=== PATIENT | female | born 1965 ===

== ENCOUNTER 2017-01-26 06:35 | Day surgery (SDC) | payer MEDICARE, MEDICAID ==
[2017-01-22 12:16] VITALS: BMI 47.8
[2017-01-26 07:39] LABS: BASO # 0.02 K/mm3 (0.0-2.0); BASO % 0.3 % (0.0-3.0); EOS # 0.3 (0.0-0.7); EOS % 3.7 % (1.5-5.0); GRAN # 3.84 (1.4-6.5); GRAN % 56.9 % (50.0-68.0); HEMOGLOBIN 11.9 gm/dL (12.0-16.0); LYMPH # 2.3 (1.2-3.4); LYMPH % 33.6 % (22.0-35.0); MEAN CELL VOLUME 81.4 fL (80.0-105.0); MEAN CORPUSCULAR HEMOGLOBIN 27.4 pg (25.0-35.0); MEAN CORPUSCULAR HGB CONC 33.6 g/dl (31.0-37.0); MEAN PLATELET VOLUME 10.3 fl (7.0-11.0); MONO # 0.4 (0.1-0.6); MONO % 5.5 % (1.0-6.0); PLATELET COUNT 202 10^3/uL (120.0-450.0); RBC 4.35 10^6/uL (3.5-6.1); RED CELL DISTRIBUTION WIDTH 14.1 % (11.5-14.5); WHITE BLOOD COUNT 6.8 10^3/ul (4.5-11.0)
[2017-01-26 07:48] LABS: INR 0.99 (0.93-1.08); PARTIAL THROMBOPLASTIN TIME 28.7 Seconds (23.7-30.8); PROTHROMBIN TIME 10.7 Seconds (9.9-11.8)
[2017-01-26 07:50] LABS: BLOOD UREA NITROGEN 9 mg/dL (7-21); CALCIUM 8.8 mg/dL (8.4-10.5); GFR AFRICAN-AMERICAN > 60; GFR NON-AFRICAN AMERICAN > 60; HDL CHOLESTEROL 36 mg/dL (29-60)
[2017-01-26 08:00] LABS: LDL CHOLESTEROL 81 mg/dL (0-129)
[2017-01-26] MEDS ORDERED: Lidocaine 2% Inj (20ml) ONE (08:26)
[2017-01-26] MEDS ORDERED: Nitroglycerin 50mg in D5W 50 MG/250 ML BOTTLE IV ONE (08:27)
[2017-01-26] MEDS ORDERED: Midazolam 2 MG/2 ML VIAL ONE (09:08)
[2017-01-26 09:48] VITALS: RESP 18
[2017-01-26] MEDS ORDERED: Bacitracin 500 Units/gm Oint Foilpak UD TOP ONE (09:56)
[2017-01-26] MEDS ORDERED: Sodium Chloride 0.9% 1,000 ML IV SCH (10:00)
[2017-01-26 10:33] VITALS: TEMP 98.1
[2017-01-26] MEDS ORDERED: Bacitracin 500 Units/gm Oint Foilpak UD ONE (12:30)
[2017-01-26 12:52] VITALS: O2SAT 99
[2017-01-26 14:51] VITALS: BP 141/85; PULSE 80
--- NOTE | 2017-01-26 18:14 | CARD ---
APPROVED REPORT Procedure(s) performed: Left Heart Catheterization HISTORY The patient is a 51 year-old female with a history of : hypertension , dyslipidemia , Pre-op for knee surgery had an abnormal stress test. INDICATION The indication(s) include : positive stress test. CASE TECHNIQUE The patient was brought electively to the Cardiac Catheterization Laboratory in a fasting state and was prepped and draped in a sterile manner. The left wrist was infiltrated with 2% Lidocaine subcutaneous anesthesia. A sheath was inserted into the left radial artery without difficulty. Coronary angiography was performed using coronary diagnostic catheters. The left coronary system was accessed and visualized with a Diagnostic ,Jl 3.5 5Fr catheter. The right coronary system was accessed and visualized with a Diagnostic , JR 3.5 5Fr catheter. The left ventricle was accessed and visualized with a pigtali catheter. Left ventricular/Aortic Valve gradient assessed on pullback. Left ventriculogram was performed in [place] projection. The patient tolerated the procedure well and there were no complications associated with the procedure. Vessel Analysis The patient's coronary anatomy is co-dominant. The left main coronary artery is a large size vessel without significant stenosis. The left main bifurcates to the left anterior descending and circumflex. The left anterior descending artery is a medium size vessel with diffuse calcification noted throughout this vessel and without significant stenosis. There is a 60% stenosis in the mid segment. The first diagonal branch is a medium size vessel with diffuse calcification noted throughout this vessel and with significant stenosis. There is a 70% stenosis in the ostial segment. The circumflex artery is a large size vessel with diffuse calcification noted throughout this vessel and without significant stenosis. The first obtuse marginal branch is a small size vessel with intimal irregularities and without significant stenosis. The second obtuse marginal branch is a large size vessel with diffuse calcification noted throughout this vessel and without significant stenosis. The right coronary artery is a large size vessel with diffuse calcification noted throughout this vessel and without significant stenosis. The right posterior descending artery is a medium size vessel with intimal irregularities and without significant stenosis. Left Ventricle The left ventricle is normal in size with normal contractility. There was no cardiomyopathy. The left ventricular ejection fraction is estimated to be 65%. The left ventricular end diastolic pressure is 35 mmHg. There was no gradient across the aortic valve upon pullback. Conclusion Non Obstructive CAD limited to Mid LAD 60% in worst view and Ostial D1 70% preserved Lv Fxz; Ef-65%, EDp-35 mm of Hg with respiratory variation Recommendations Aggressive Medical TherapyCardiac Risk Reduction Program Weight Loss Reduction Program Add diuretics in current regimen Pt is cleared from cardiology point of view to go for Knee surgery . Cc; drs. Vila / Elida.
--- NOTE | 2017-01-26 23:23 | CARD ---
APPROVED REPORT EKG Measurement Heart [id number] <Conclusion> Normal sinus rhythm Normal ECG
== END 2017-01-26 14:30 | disposition home or self-care (01) ==
LOC: CATH 06:35
PROVIDERS: ATTEND Internal Medicine Cardiovascular Disease
DX: I25.119 Atherosclerotic heart disease of native coronary artery with unspecified angina pectoris (principal); I10 Essential (primary) hypertension; E78.5 Hyperlipidemia, unspecified; R94.39 Abnormal result of other cardiovascular function study; Z01.810 Encounter for preprocedural cardiovascular examination; J45.909 Unspecified asthma, uncomplicated; R06.00 Dyspnea, unspecified; E11.9 Type 2 diabetes mellitus without complications; E66.9 Obesity, unspecified
CPT/HCPCS: 36415; 80048; 80061; 84703; 85025; 85610; 85730; 86850; 86900; 93005; 93458; 99152; C1769; C1887; J1644 ×2; J1940; J2250; J3010; J7030; J7040 ×2; Q9967

== ENCOUNTER 2018-03-08 16:25 | Inpatient (IN) | payer MEDICARE, MEDICAID ==
--- NOTE | 2018-03-08 16:50 | ED PDOC ---
Arrival/HPI - General Historian: Patient - History of Present Illness Time/Duration: > week Symptom Onset: Gradual Symptom Course: Worsening Quality: Aching Severity Level: 9 <Ever Staton - Last Filed: 03/08/18 19:01> <Del Hall - Last Filed: 03/08/18 19:14> - General Time Seen by Provider: 03/08/18 16:47 - History of Present Illness Narrative History of Present Illness (Text): 03/08/18 17:34 Patient is a 52 year old female with past medical history of asthma, neuropathy , hypertension, and hyperlipidemia presenting to the ED with left ankle swelling. Patient states that the swelling started 2 weeks ago and has been worsening. She states that she went to see her PMD last week for the same complaint and her PMD adjusted her home medications. However, the ankle swelling is not getting better. She describes the pain as achy, 9/10, and non- radiating. Tylenol helps with the pain and walking makes the pain worse. Patient had bilateral knee replacement surgery in November 2017. She also admits to feeling short of breath at night when she is lying down in bed. Patient denies fevers, headaches, chest pain, abdominal pain, N/V/D, or urinary symptoms. 03/08/18 18:48 (Ever Staton) Past Medical History - Infectious Disease Hx of Infectious Diseases: None - Tetanus Immunization Tetanus Immunization: Unknown - Cardiac Hx Pacemaker: No - Pulmonary Hx Asthma: Yes - Neurological Hx Paralysis: No - HEENT Hx HEENT Disorder: Yes Other/Comment: WEARS RX GLASSES - Renal Hx Renal Disorder: Yes Other/Comment: RIGHT PARTIAL NEPHRECTOMY - Endocrine/Metabolic Hx Endocrine Disorders: No - Hematological/Oncological Hx Blood Transfusions: No - Integumentary Hx Dermatological Disorder: No - Musculoskeletal/Rheumatological Hx Musculoskeletal Disorders: Yes - Gastrointestinal Hx Gastrointestinal Disorders: Yes Hx Gastroesophageal Reflux: Yes - Genitourinary/Gynecological Hx Genitourinary Disorders: No - Psychiatric Hx Emotional Abuse: No Hx Physical Abuse: No Hx Substance Use: No - Past Surgical History Past Surgical History: Non-Contributing - Surgical History Other/Comment: Kidney Surgery "a long time ago" - Anesthesia Hx Anesthesia Reactions: No Hx Malignant Hyperthermia: No - Suicidal Assessment Feels Threatened In Home Enviroment: No <Ever Staton - Last Filed: 03/08/18 19:01> Family/Social History Family/Social History: Hypertension Smoking Status: Never Smoked Hx Alcohol Use: No Hx Substance Use: No Hx Substance Use Treatment: No <Ever Staton - Last Filed: 03/08/18 19:01> Allergies/Home Meds <Ever Staton - Last Filed: 03/08/18 19:01> <Del Hall - Last Filed: 03/08/18 19:14> Allergies/Adverse Reactions: Allergies No Known Allergies Allergy (Verified 03/08/18 16:32) Home Medications: Home Meds Medication Instructions Recorded Confirmed Tiotropium [Spiriva] 18 mcg IH BID 12/15/12 03/08/18 Fluticasone Nasal [Flonase] 2 spr NS DAILY 11/08/15 03/08/18 Gabapentin [Neurontin] 300 mg PO HS 11/08/15 03/08/18 Hydrochlorothiazide 12.5 mg PO DAILY 11/08/15 03/08/18 Montelukast [Singulair] 10 mg PO BID 11/08/15 03/08/18 Simvastatin 40 mg PO DAILY 11/08/15 03/08/18 Albuterol HFA [Ventolin HFA 90 2 puff IH BID 01/22/17 03/08/18 mcg/actuation (8 g)] Albuterol/Ipratropium [Duoneb 3 3 ml NEB TID 01/22/17 03/08/18 mg/0.5 mg (3 ml) UD] Benzonatate 100 mg PO QPM 01/22/17 03/08/18 Gemfibrozil 600 mg PO BID 01/22/17 03/08/18 Metoprolol Tartrate [Lopressor] 25 mg PO DAILY 01/22/17 03/08/18 Mycophenolate [Cellcept Cap] 500 mg PO BID 01/22/17 03/08/18 Sucralfate [Carafate Tab] 1 gm PO BID 01/22/17 03/08/18 Tramadol HCl/Acetaminophen 1 tab PO BID PRN 01/22/17 03/08/18 [Tramadol-Acetaminophn 37.5-325] Enalapril Maleate [Vasotec] 20 mg PO DAILY 03/08/18 03/08/18 Esomeprazole Magnesium [Nexium] 40 mg PO DAILY 03/08/18 03/08/18 Esomeprazole Magnesium [Nexium] 40 mg pe PO DAILY 03/08/18 03/08/18 Lactulose [Constulose] 10 gra PO DAILY 03/08/18 03/08/18 Omeprazole [Omeprazole] 20 mg PO BID 03/08/18 03/08/18 Review of Systems - Review of Systems Constitutional: Normal. absent: Fevers, Night Sweats Eyes: Normal ENT: Normal Respiratory: SOB. absent: Wheezing Cardiovascular: Normal. absent: Chest Pain, Palpitations Gastrointestinal: Normal. absent: Abdominal Pain, Stool Changes, Constipation, Diarrhea Genitourinary Female: Normal Musculoskeletal: Joint Swelling Skin: Normal. absent: Rash, Pruritis, Laceration Neurological: Other (Complains of nerve pain) Psychiatric: Normal <Ever Staton - Last Filed: 03/08/18 19:01> - Physician Review All systems were reviewed & negative as marked: Yes <Del Hall - Last Filed: 03/08/18 19:14> Physical Exam Vital Signs Reviewed: Yes Temperature: Afebrile Blood Pressure: Normal Pulse: Tachycardic Respiratory Rate: Normal Appearance: Positive for: Well-Appearing Pain Distress: Moderate Mental Status: Positive for: Alert and Oriented X 3 - Systems Exam Head: Present: Atraumatic, Normocephalic Pupils: Present: PERRL Extroacular Muscles: Present: EOMI Conjunctiva: Present: Normal Mouth: Present: Moist Mucous Membranes Respiratory/Chest: Present: Clear to Auscultation. No: Respiratory Distress, Accessory Muscle Use, Wheezes, Rales, Rhonchi Cardiovascular: Present: Normal S1, S2, Tachycardic. No: Murmurs, Rub, Gallop Abdomen: Present: Normal Bowel Sounds. No: Tenderness, Distention Upper Extremity: Present: Normal Inspection. No: Cyanosis, Edema Lower Extremity: Present: Edema, Tenderness, Other (Left ankle more edematous and warm compared to the right ankle, +1 edema on left ankle and left leg, left ankle tender to palpation) Neurological: Present: GCS=15, CN II-XII Intact Skin: Present: Warm, Dry, Rashes, Normal Color Psychiatric: Present: Alert, Oriented x 3, Normal Insight, Normal Concentration <Ever Staton - Last Filed: 03/08/18 19:01> Vital Signs Reviewed: Yes <LucindamorenaDel - Last Filed: 03/08/18 19:14> Vital Signs Temp Pulse Resp BP Pulse Ox 03/08/18 16:45 98.0 F 100 H 20 139/83 96 03/08/18 16:43 98.0 F 100 H 20 139/83 96 Medical Decision Making <Homa Statoni - Last Filed: 03/08/18 19:01> <Del Hall - Last Filed: 03/08/18 19:14> ED Course and Treatment: 03/08/18 17:45 Impression: Patient is a 52 year old with past medical history of asthma, neuropathy, hypertension, and hyperlipidemia presenting to the ED with left ankle swelling. Differential Diagnoses Include But is Not Limited To: - DVT - Cellulitis - CHF exacerbation Plan: - BNP - D-dimer - Troponin - CBC, CMP - LE Venous doppler - Chest Xray - EKG - Toradol Progress note: 03/08/18 18:55 - Chest Xray showed no acute disease - LE venous doppler, EKG, BNP, D-dimer, CBC, CMP, troponin results still pending 03/08/18 18:58 - Dr. Pelaez will continue patient care for patient (Ever Staton) 03/08/18 19:11 Cindy Shepard is a 52 year old female who presents to the emergency department with a complaint of left ankle swelling. In agreement with resident note, which includes further HPI details. Patient was seen and evaluated with resident, came up with plan and treatment together. 03/08/18 19:13: Case endorsed to Dr. Pelaez. (Del Hall) - Lab Interpretations Lab Results: 03/08/18 18:29 03/08/18 18:29 Lab Results 03/08/18 18:29: Sodium 144, Potassium 4.1, Chloride 104, Carbon Dioxide 28, Anion Gap 17, BUN 10, Creatinine 0.6 L, Est GFR ( Amer) > 60, Est GFR ( Non-Af Amer) > 60, Random Glucose 96, Calcium 9.4, Total Bilirubin 0.4, AST 23, ALT 16, Alkaline Phosphatase 100, Troponin I < 0.01, NT-Pro-B Natriuret Pep 71.4 , Total Protein 8.3, Albumin 4.5, Globulin 3.8, Albumin/Globulin Ratio 1.2 03/08/18 18:29: WBC 7.5, RBC 5.10, Hgb 12.2, Hct 38.3, MCV 75.1 L, MCH 23.9 L, MCHC 31.9, RDW 15.6 H, Plt Count 215, MPV 10.5, Gran % 65.1, Lymph % (Auto) 28.1 , [place] % (Auto) 4.5, Eos % (Auto) 2.0, Baso % (Auto) 0.3, Gran # 4.88, Lymph # ( Auto) 2.1, [place] # (Auto) 0.3, Eos # (Auto) 0.2, Baso # (Auto) 0.02 - RAD Interpretation Radiology Orders: 03/08/18 17:18 CXR [CHEST PORTABLE] [RAD] Stat 03/08/18 17:19 DUPLEX LOWER EXTRM VEIN BILAT [US] Stat - Medication Orders Current Medication Orders: Discontinued Medications Ketorolac Tromethamine (Toradol) 30 mg IVP STAT STA Stop: 03/08/18 17:59 Disposition/Present on Arrival - Present on Arrival Any Indicators Present on Arrival: No History of DVT/PE: No History of Uncontrolled Diabetes: No Urinary Catheter: No History of Decub. Ulcer: No History Surgical Site Infection Following: None - Disposition Have Diagnosis and Disposition been Completed?: No Disposition Time: 18:57 (Dr. Pelaez will continue care of patient) <Ever Staton - Last Filed: 03/08/18 19:01> <Del Hall - Last Filed: 03/08/18 19:14> - Disposition Diagnosis: Left ankle swelling Patient Problems: Current Active Problems Problem Status Onset Left ankle swelling Acute Condition: FAIR Referrals: Rosalina Vila MD [Primary Care Provider] - Follow up with primary
--- NOTE | 2018-03-08 18:26 | RAD ---
Date of service: 03/08/2018 HISTORY: SOB COMPARISON: Chest radiograph dated 12/30/2016. FINDINGS: LUNGS: No active pulmonary disease. PLEURA: No significant pleural effusion identified, no pneumothorax apparent. CARDIOVASCULAR: Cardiomediastinal silhouette at the upper limits of normal in size. OSSEOUS STRUCTURES: Unchanged. VISUALIZED UPPER ABDOMEN: Normal. OTHER FINDINGS: None. IMPRESSION: No active disease.
[2018-03-08 18:47] LABS: ALB/GLOB RATIO 1.2 (1.1-1.8); ALBUMIN 4.5 g/dL (3.0-4.8); ALT/SGPT 16 U/L (7-56); AST/SGOT 23 U/L (14-36); BLOOD UREA NITROGEN 10 mg/dL (7-21); CALCIUM 9.4 mg/dL (8.4-10.5); GFR NON-AFRICAN AMERICAN > 60
[2018-03-08 18:56] LABS: TROPONIN I < 0.01 ng/mL
[2018-03-08 18:57] LABS: B-TYPE NATRIURETIC PEPTIDE 71.4 pg/mL (0-450)
[2018-03-08 19:00] LABS: BASO # 0.02 K/mm3 (0.0-2.0); BASO % 0.3 % (0.0-3.0); EOS # 0.2 (0.0-0.7); GRAN # 4.88 (1.4-6.5); GRAN % 65.1 % (50.0-68.0); HEMOGLOBIN 12.2 g/dL (12.0-16.0); LYMPH # 2.1 (1.2-3.4); LYMPH % 28.1 % (22.0-35.0); MEAN CELL VOLUME 75.1 fl (80.0-105.0); MEAN CORPUSCULAR HEMOGLOBIN 23.9 pg (25.0-35.0); MEAN CORPUSCULAR HGB CONC 31.9 g/dl (31.0-37.0); MEAN PLATELET VOLUME 10.5 fl (7.0-11.0); MONO # 0.3 (0.1-0.6); MONO % 4.5 % (1.0-6.0); RBC 5.1 10^6/uL (3.5-6.1); RED CELL DISTRIBUTION WIDTH 15.6 % (11.5-14.5); WHITE BLOOD COUNT 7.5 10^3/ul (4.5-11.0)
--- NOTE | 2018-03-08 20:09 | ED PDOC ---
Physical Exam Vital Signs Reviewed: Yes Vital Signs Temp Pulse Resp BP Pulse Ox 03/08/18 16:45 98.0 F 100 H 20 139/83 96 03/08/18 16:43 98.0 F 100 H 20 139/83 96 Temperature: Afebrile Blood Pressure: Normal Pulse: Tachycardic Respiratory Rate: Normal Appearance: Positive for: Well-Appearing, Non-Toxic, Comfortable Pain Distress: None Mental Status: Positive for: Alert and Oriented X 3 Medical Decision Making ED Course and Treatment: 03/08/18 19:13: Case endorsed to me by Dr. Hall.Patient presented to the emergency department today with complaint of swelling lower legs. Pending LE venous doppler, EKG, BNP, D-dimer, CBC, CMP, troponin results still pending. 03/08/18 20:46: Case discussed in detail with Dr. Vila who requests patient be put on her service for further management. - Lab Interpretations Lab Results: 03/08/18 18:29 03/08/18 18:29 Lab Results 03/08/18 18:29: Sodium 144, Potassium 4.1, Chloride 104, Carbon Dioxide 28, Anion Gap 17, BUN 10, Creatinine 0.6 L, Est GFR ( Amer) > 60, Est GFR ( Non-Af Amer) > 60, Random Glucose 96, Calcium 9.4, Total Bilirubin 0.4, AST 23, ALT 16, Alkaline Phosphatase 100, Troponin I < 0.01, NT-Pro-B Natriuret Pep 71.4 , Total Protein 8.3, Albumin 4.5, Globulin 3.8, Albumin/Globulin Ratio 1.2 03/08/18 18:29: WBC 7.5, RBC 5.10, Hgb 12.2, Hct 38.3, MCV 75.1 L, MCH 23.9 L, MCHC 31.9, RDW 15.6 H, Plt Count 215, MPV 10.5, Gran % 65.1, Lymph % (Auto) 28.1 , [place] % (Auto) 4.5, Eos % (Auto) 2.0, Baso % (Auto) 0.3, Gran # 4.88, Lymph # ( Auto) 2.1, [place] # (Auto) 0.3, Eos # (Auto) 0.2, Baso # (Auto) 0.02 - RAD Interpretation Radiology Orders: 03/08/18 17:18 CXR [CHEST PORTABLE] [RAD] Stat 03/08/18 17:19 DUPLEX LOWER EXTRM VEIN BILAT [US] Stat - Medication Orders Current Medication Orders: Discontinued Medications Ketorolac Tromethamine (Toradol) 30 mg IVP STAT STA Stop: 03/08/18 17:59 - Scribe Statement The provider has reviewed the documentation as recorded by the Scribe Regina Soriano Provider Scribe Attestation: All medical record entries made by the Scribe were at my direction and personally dictated by me. I have reviewed the chart and agree that the record accurately reflects my personal performance of the history, physical exam, medical decision making, and the department course for this patient. I have also personally directed, reviewed, and agree with the discharge instructions and disposition. Disposition/Present on Arrival - Present on Arrival Any Indicators Present on Arrival: No History of DVT/PE: No History of Uncontrolled Diabetes: No Urinary Catheter: No History of Decub. Ulcer: No History Surgical Site Infection Following: None - Disposition Have Diagnosis and Disposition been Completed?: Yes Diagnosis: Bilateral leg edema Disposition: HOSPITALIZED Disposition Time: 20:49 Patient Plan: Observation Patient Problems: Current Active Problems Problem Status Onset Bilateral leg edema Acute Condition: FAIR
[2018-03-08 22:11] LABS: PARTIAL THROMBOPLASTIN TIME 30.1 Seconds (25.1-36.5); PROTHROMBIN TIME 11.4 SECONDS (9.4-12.5)
[2018-03-09 02:44] VITALS: BMI 41.5
[2018-03-09] MEDS ORDERED: Pneumococcal 23-Valent Vaccine IM ONE (02:44)
[2018-03-09] MEDS: Albuterol-Ipratrop 3 mg / 0.5 (3 ml) UD INH SCH ×3 (08:15→20:19)
--- NOTE | 2018-03-09 08:25 | CT ---
Date of service: 03/09/2018 PROCEDURE: CT Chest with contrast (Pulmonary Angiogram) HISTORY: elevated d-dimer COMPARISON: None available. TECHNIQUE: Axial computed tomography images were obtained of the chest in the pulmonary arterial phase of enhancement. Coronal and sagittal reformatted images were created and reviewed. Intravenous contrast dose: 100 cc of Visipaque Radiation dose: Total exam DLP = 527 mGy-cm. This CT exam was performed using one or more of the following dose reduction techniques: Automated exposure control, adjustment of the mA and/or kV according to patient size, and/or use of iterative reconstruction technique. FINDINGS: PULMONARY ARTERIES: There is suboptimal opacification of the pulmonary arteries. There are no large emboli seen in the proximal arteries AORTA: No acute findings. No thoracic aortic aneurysm. LUNGS: Unremarkable. No nodule, mass or pulmonary consolidation. PLEURAL SPACES: Unremarkable. No effusion or pneumothorax. HEART: Unremarkable. No cardiomegaly. No significant pericardial effusion. LYMPH NODES: No lymphadenopathy. BONES, CHEST WALL: Unremarkable. No fracture or destructive lesion OTHER FINDINGS: The report concurs with the preliminary [facility] report IMPRESSION: There is suboptimal opacification of the pulmonary arteries. There are no large emboli seen in the proximal arteries
--- NOTE | 2018-03-09 09:15 | CARD ---
APPROVED REPORT Date of service: 03/08/2018 EKG Measurement Heart [id number] <Conclusion> Normal sinus rhythm Normal ECG No change
[2018-03-09] MEDS: Tiotropium 18 mcg Cap For Inhalation IH SCH (09:28)
[2018-03-09] MEDS: Fluticasone Nasal 50 mcg/Spray NS SCH (09:29)
--- NOTE | 2018-03-09 12:35 | RAD ---
Date of service: 03/09/2018 PROCEDURE: Left Ankle Radiographs. HISTORY: pain COMPARISON: None FINDINGS: BONES: Normal. No fracture. JOINTS: Normal. No osteoarthritis. Ankle mortise maintained. Talar dome intact SOFT TISSUES: Normal. OTHER FINDINGS: None. IMPRESSION: Normal left ankle radiographs.
--- NOTE | 2018-03-09 12:36 | RAD ---
Date of service: 03/09/2018 PROCEDURE: Left Foot Radiographs. HISTORY: pain COMPARISON: None. FINDINGS: BONES: Normal. No fracture. JOINTS: Normal. SOFT TISSUES: Normal. OTHER FINDINGS: None. IMPRESSION: Normal left foot radiographs.
--- NOTE | 2018-03-09 17:33 | US ---
HISTORY: Leg pain and swelling. Evaluate for DVT PHYSICIAN(S): Devendra Causey MD. TECHNIQUE: Duplex sonography and color-flow Doppler with graded compression were used to evaluate the deep venous systems of both lower extremities. The exam is limited by body habitus and edema. FINDINGS: The visualized deep venous systems of both lower extremities are sonographically normal and compressible. Normal wave forms and augmentation are seen. There is no sonographic evidence for deep venous thrombosis in the visualized segments of both lower extremities. IMPRESSION: No sonographic evidence for deep venous thrombosis in the visualized segments of both lower extremities. Very limited study.
--- NOTE | 2018-03-10 00:02 | CON ---
Copied To: Johanna Whitman MD Attending MD: Johanna Whitman MD DATE: 03/09/2018 REASON FOR CONSULTATION: Cardiac evaluation, admitted with complaints of lower leg swelling, some shortness of breath, also history of cardiac catheterization and nonischemic coronary artery disease, history of bilateral knee replacement. BRIEF CLINICAL HISTORY: This is a 52-year-old obese female with past medical history of hypertension, history of arthritis, history of morbid obesity, history of cardiac catheterization, admitted yesterday with complaining of lower extremity edema and shortness of breath. Denies any chest pain or palpitation. PAST MEDICAL HISTORY: Significant for history of hypertension, hyperlipidemia, obesity, COPD, history of obstructive sleep apnea. SOCIAL HISTORY: Denies smoking. Denies any history of alcohol abuse. CURRENT MEDICATIONS: The patient is taking tramadol one tablet daily, Spiriva, sucralfate, omeprazole, metoprolol, lactulose, gemfibrozil, enalapril, albuterol. PREVIOUS CARDIAC WORKUP: As follows, the patient had a cardiac catheterization done on 01/26/2017 that revealed nonobstructive coronary artery disease, limited only to mid LAD 60% in the worse view, ostial diagonal 1 70% stenosis, preserved LV function, ejection fraction 65%, EDP was in the range of 35 with respiratory variation. Recommendation: Aggressive medical treatment, cardiac risk factor reduction program, weight loss reduction program, add diuretics at this time, and the patient was cleared for surgery for right knee that was on . The patient has recently done with left knee joint, also replacement. The patient had a stress test done prior to that cardiac catheterization that revealed abnormal, so the patient underwent cardiac catheterization coronary artery disease. PAST SURGICAL HISTORY: Significant for right knee replacement in 02/2017 and in 11/2017 the patient had left knee joint replacement. REVIEW OF SYSTEMS: As per HPI. PHYSICAL EXAMINATION: VITAL SIGNS: As follows: Height of the patient is 5 feet 9 inches, weight of the patient 281 pounds, body mass index 42 kg/sq m. Rest of the examination as follows, temperature afebrile, heart rate 94, blood pressure 134/69. HEENT: PERRLA. Extraocular muscles intact. NECK: Supple. No carotid bruits or thyromegaly. CHEST: Clear to auscultation. HEART: S1 and S2 regular. ABDOMEN: Soft. EXTREMITIES: Clubbing and cyanosis negative. LABORATORY DATA: Blood workup as follows: WBC 7.5, hemoglobin 12.2, hematocrit 38.3, and platelet count 215. Chemistry shows , chloride 104, carbon dioxide is 28, anion gap of 17, BUN 10, creatinine 0.7. Troponin 0.01, negative. IMPRESSION: Bilateral lower extremity swelling, hypertension, hyperlipidemia, chronic obstructive pulmonary disease, morbid obesity, status post cardiac catheterization on 01/26/2017, nonischemic coronary artery disease, limited only worse view 60% left anterior descending artery, diagonal 1 ostial 70%, preserved left ventricular function ejection fraction 65%, elevated EDP, status post bilateral knee replacement in 02/2017 right and status post left knee in 11/2017. RECOMMENDATIONS: We will get lipid profile, TSH, hemoglobin A1c. We will get echo to assess LV function and tricuspid regurgitation. We will put diuretics. We will follow with you. Continue deep venous thrombosis prophylaxis. The patient also has history of obstructive sleep apnea, we will get echo to assess, rule out any pulmonary hypertension. Thank you, Dr. Vila for providing us the opportunity in taking care of the patient Cindy Shepard. Johanna Whitman MD
[2018-03-10 06:53] LABS: BASO # 0.01 K/mm3 (0.0-2.0); BASO % 0.1 % (0.0-3.0); EOS # 0.2 (0.0-0.7); EOS % 2.4 % (1.5-5.0); GRAN # 4.68 (1.4-6.5); GRAN % 64.9 % (50.0-68.0); HEMOGLOBIN 12.3 g/dL (12.0-16.0); LYMPH # 1.9 (1.2-3.4); LYMPH % 26.3 % (22.0-35.0); MEAN CELL VOLUME 74.9 fl (80.0-105.0); MEAN CORPUSCULAR HEMOGLOBIN 24.4 pg (25.0-35.0); MEAN CORPUSCULAR HGB CONC 32.5 g/dl (31.0-37.0); MEAN PLATELET VOLUME 10.2 fl (7.0-11.0); MONO # 0.5 (0.1-0.6); MONO % 6.3 % (1.0-6.0); RBC 5.05 10^6/uL (3.5-6.1); RED CELL DISTRIBUTION WIDTH 16.2 % (11.5-14.5); WHITE BLOOD COUNT 7.2 10^3/ul (4.5-11.0)
[2018-03-10 06:59] LABS: IRON 66 ug/dL (45-180)
[2018-03-10 07:09] LABS: % IRON SATURATION 19 % (20-55); TOTAL IRON BINDING CAPACITY 358 ug/dL (265-497)
[2018-03-10 07:17] LABS: ALB/GLOB RATIO 1.1 (1.1-1.8); ALBUMIN 4.2 g/dL (3.0-4.8); ALT/SGPT 21 U/L (7-56); AST/SGOT 20 U/L (14-36); BLOOD UREA NITROGEN 12 mg/dL (7-21); CALCIUM 8.8 mg/dL (8.4-10.5); GFR NON-AFRICAN AMERICAN > 60; HDL CHOLESTEROL 38 mg/dL (29-60)
[2018-03-10 07:23] LABS: LDL CHOLESTEROL 102 mg/dL (0-129)
[2018-03-10] MEDS: Albuterol-Ipratrop 3 mg / 0.5 (3 ml) UD INH SCH ×4 (07:35→20:10)
--- NOTE | 2018-03-10 07:43 | CP.PCM.PN ---
Subjective - Date & Time of Evaluation Date of Evaluation: 03/10/18 Time of Evaluation: 06:35 - Subjective Subjective: Awake, denies shortness of breath, no distress Reason for consultation and follow up:Cardiac evaluation of shortness of breath , history of asthma,COPD, Obstructive sleep apnea, GERD, presented to ER for ankle swelling Seen and examined by me and Dr. Whitman Objective - Vital Signs/Intake and Output Vital Signs (last 24 hours): Temp Pulse Resp BP Pulse Ox 98 F 83 20 123/73 100 03/09/18 21:00 03/09/18 21:00 03/09/18 21:00 03/09/18 21:14 03/09/18 21:00 Intake and Output: 03/10/18 03/10/18 06:59 18:59 Intake Total 720 Output Total 1300 Balance -580 - Medications Medications: Current Medications Acetaminophen (Tylenol 325mg Tab) 650 mg PO Q4H PRN PRN Reason: Pain, moderate (4-7) Albuterol/Ipratropium (Duoneb 3 Mg/0.5 Mg (3 Ml) Ud) 3 ml INH TID [facility] Last Admin: 03/10/18 07:35 Dose: 3 ml Atorvastatin Calcium (Lipitor) 20 mg PO DIN [facility] Last Admin: 03/09/18 17:37 Dose: 20 mg Benzonatate (Tessalon Perles) 100 mg PO QPM [facility] Last Admin: 03/09/18 17:37 Dose: 100 mg Enoxaparin Sodium (Lovenox) 40 mg SC DAILY [facility] PRN Reason: Protocol Fluticasone Propionate (Flonase) 2 actuation NS DAILY [facility] Last Admin: 03/09/18 09:29 Dose: Not Given Furosemide (Lasix) 40 mg IVP Q12 [facility] Last Admin: 03/09/18 21:14 Dose: 40 mg Gabapentin (Neurontin) 300 mg PO HS [facility] PRN Reason: Protocol Last Admin: 03/09/18 21:16 Dose: 300 mg Gemfibrozil (Lopid) 600 mg PO BID [facility] Last Admin: 03/09/18 17:37 Dose: 600 mg Lactulose (Enulose) 10 gm PO DAILY [facility] Last Admin: 03/09/18 09:27 Dose: 10 gm Lisinopril (Zestril) 20 mg PO DAILY [facility] Last Admin: 03/09/18 09:28 Dose: 20 mg Metoprolol Tartrate (Lopressor) 25 mg PO DAILY [facility] Last Admin: 03/09/18 09:28 Dose: 25 mg Montelukast Sodium (Singulair) 10 mg PO DAILY [facility] Last Admin: 03/09/18 09:28 Dose: 10 mg Mycophenolate Mofetil (Cellcept Cap) 500 mg PO BID [facility] Last Admin: 03/09/18 17:37 Dose: 500 mg Sucralfate (Carafate Tab) 1 gm PO BID [facility] Last Admin: 03/09/18 17:35 Dose: 1 gm Tiotropium [place] (Spiriva) 18 mcg IH DAILY [facility] Last Admin: 03/09/18 09:28 Dose: 18 mcg - Labs Labs: 03/10/18 06:00 03/10/18 06:00 PT 11.4 SECONDS (9.4-12.5) 03/08/18 21:58 INR 1.00 03/08/18 21:58 APTT 30.1 Seconds (25.1-36.5) 03/08/18 21:58 - Constitutional Appears: No Acute Distress - Eye Exam Eye Exam: Normal appearance - ENT Exam ENT Exam: Mucous Membranes Moist - Respiratory Exam Respiratory Exam: Decreased Breath Sounds, NORMAL BREATHING PATTERN - Cardiovascular Exam Cardiovascular Exam: +S1, +S2 - GI/Abdominal Exam GI & Abdominal Exam: Soft, Normal Bowel Sounds - Extremities Exam Additional comments: 2+ pedal edema - Neurological Exam Neurological Exam: Alert, Awake, Oriented x3 - Psychiatric Exam Psychiatric exam: Normal Affect - Skin Skin Exam: Dry, Warm Assessment and Plan - Assessment and Plan (Free Text) Assessment: A 52 year old female who came in to the ER due to lower leg swelling and shortness of breath at night,history of hypertension,GERD, arthritis, COPD, sleep apnea,rheumatoid arthritis,right partial nephrectomy, hyperlipidemia,non obstructive coronary artery disease. pst bilateral knee replacement. Plan: ECHO done yesterday-awaiting final result Foot and ankle X ray- normal negative for fracture US of lower extremities negative for DVT CT of chest negative for emboli Continue Lasix to diurese Heart rate and blood pressure controlled Cardiac status stable Continue current treatment Continue current medications Will follow up Plan and treatment discussed with Dr. Whitman
--- NOTE | 2018-03-10 09:17 | CON ---
Copied To: Johanna Beltrán MD Attending MD: Johanna Beltrán MD DATE: 03/09/2018 PULMONARY CONSULTATION REFERRING PHYSICIAN: Rosalina Vila MD REASON FOR CONSULTATION: Chronic obstructive lung disease, sleep apnea syndrome, history of PE and DVT. 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 No fever. No chills. No nausea. PAST MEDICAL HISTORY: As per history of present illness, has a history of right partial nephrectomy, history of gastroesophageal reflux disease. FAMILY HISTORY: Positive for hypertension. SOCIAL HISTORY: Nonsmoker, nondrinker. ALLERGIES: NO KNOWN ALLERGIES. MEDICATIONS: She is on Carafate 1 g twice a day, CellCept 500 mg twice a day, DuoNeb every 8 hours, lactulose 10 mg daily, Flonase one ____ spray to each nostril daily, Lasix 40 mg twice a day, Lipitor 20 mg daily, Gemfibrozil 600 mg twice a day, metoprolol tartrate 25 mg daily, gabapentin 300 mg at bedtime, Singulair 10 mg daily, Spiriva 1 capsule inhaled daily, Tessalon Perles 100 mg four times a day, Tylenol p.r.n. basis, Zestril 20 mg daily. REVIEW OF SYSTEMS: No headache. Not much rhinitis. Short of breath exertion. No chest pain. No abdominal pain. No dysuria. Has a recurrent leg swelling. PHYSICAL EXAMINATION: GENERAL: No acute distress. VITAL SIGNS: Temperature is 98, heart rate 76, respiratory rate is 20, blood pressure 118/80, pulse of 98% room air. HEENT: Moist mucous membrane. Crowded airway. NECK: Supple. No JVD. LUNGS: Have a prolonged expiratory phase with wheezing. HEART: S1 and S2. ABDOMEN: Soft, nontender, no organomegaly. EXTREMITIES: Left knee incision site looks okay, left more edema than the right. NEUROLOGIC: Awake, alert and follows simple commands. LABORATORY DATA: Shows hemoglobin 12.2, hematocrit 38.3, WBC 7.5, platelet count is 215. INR 1.0. PTT 31, D-dimer is 757. Sodium 144, potassium 4.1, chloride 104, bicarbonate 28, BUN is 10, creatinine 0.6, glucose 96, calcium 9.4, total bili 0.4, AST 23, ALT 16, alk phos is 100. Albumin is 4.5. Has a chest x-ray done on admission, shows no active disease. Has a venous Doppler done on admission, shows no sonographic evidence of DVT and thrombosis in the visualized segment of the both lower extremities though it is a limited study. Had a CT of the chest done in the ER, shows suboptimal opacification of the pulmonary artery. There are no large emboli seen in the proximal arteries. Echocardiogram is being done. IMPRESSION AND PLAN: Chronic obstructive lung disease, history of deep vein thrombosis and pulmonary embolism in the remote past, hypertension, obesity, sleep apnea syndrome, status post left knee replacement, has edema of the both lower extremity. D-dimers are positive. Both venous Doppler and CTA is suboptimal study as she has a D-dimer, positive stone, history of thromboembolic disease in the past on anticoagulation. We will suggest getting VQ scan of the chest to assure there is no pulmonary embolism. Keep her head at [address] her on CPAP 6 cm 30% oxygen while sleeping. Gastric and deep vein thrombosis prophylaxis. Thank you and we will follow. Johanna Beltrán MD
--- NOTE | 2018-03-10 09:33 | HP ---
03/09/18 Copied To: Rosalina Vila MD Attending MD: Rosalina Vila MD The patient is a 52-year-old female. CHIEF COMPLAINT: Swelling of the leg. HISTORY OF PRESENT ILLNESS: Ms. Cindy Shepard is a 52-year-old female, my private patient, with history of asthma, COPD, neuropathy, hypertension, obesity, hypercholesterolemia, knee surgery. Cleaning my office with swelling of the legs. I prescribed her Lasix, then she called back, still swelling, then I added Aldactone, now she was taking Lasix 40 and Aldactone 25. Still called my office that still she has swelling of the leg, then I sent her to the [facility] and her swelling is like for 2 weeks and worsening instead of getting better. She described the pain as 8 to 9/10, non-radiating. Tylenol helps with pain and walking makes the pain worse. The patient had bilateral knee replacement. Surgery was done in 11/2017, by Dr. Aguilera. She also admits to feeling short of breath at night when she is lying down in the bed. The patient denies fevers, headache, chest pain, or abdominal pain. No nausea, vomiting, or diarrhea. No urinary symptoms. I admitted the patient. Discussion done with Dr. Beltrán. Cardiology consult called. PAST MEDICAL HISTORY: As above. Asthma, right partial nephrectomy, GERD, dyspepsia, COPD. FAMILY HISTORY: Father and mother, noncontributory. HABITS: Never smoked. No drugs. No ethanol. ALLERGIES: THE PATIENT IS NOT ALLERGIC WITH ANY MEDICATIONS. HOME MEDICATIONS: Spiriva, Flonase, Neurontin, Lasix, Aldactone, Singulair, simvastatin, Ventolin, gemfibrozil, Lopressor, CellCept, Carafate, Nexium, lactulose. REVIEW OF SYSTEMS: The patient was seen and examined at the bedside. Sister and other family members are sitting on the bedside also, still having swelling of the legs. No fever. No chills. Getting shortness of breath. No headache. No dizziness. No hematuria or hematochezia. PHYSICAL EXAMINATION: VITAL SIGNS: Temperature 98, heart rate 100, respiratory rate 20, blood pressure 139/83, pulse oximetry 96. HEENT: Head is normocephalic and atraumatic. Eyes; PERRLA. Extraocular muscles are intact. Conjunctivae are clear. Nose is patent. Mucous membranes are moist. NECK: Supple. No carotid bruit, JVD, or thyromegaly. CHEST: Bilaterally symmetrical. HEART: S1 and S2 positive. LUNGS: Clear to auscultation. ABDOMEN: Soft. Bowel sounds present. No organomegaly. EXTREMITIES: Positive edema. No cyanosis. NEUROLOGICAL: Oriented x3. Follow simple orders. LABORATORY DATA: White blood cells 7.5, hemoglobin 12.2, hematocrit 38.3,and platelet 215. Sodium 144, potassium 4.1, BUN 10, creatinine 0.6, glucose 96. ASSESSMENT AND PLAN: Ms. Cindy Shepard is a 52-year-old lady came with swelling of the legs, especially left ankle, failure outpatient treatment. The patient is on p.o. Lasix and Aldactone, not helping. The patient has history of asthma, chronic obstructive pulmonary disease, neuropathy, hypertension, hypercholesterolemia, history of partial nephrectomy, gastroesophageal reflux disease, dyspepsia, knee replacement. Did x-ray of the foot and ankle, reviewed by me. Normal left foot radiograph. Normal left ankle radiograph. CAT scan of the chest done, there is suboptimal opacification of the left arteries. There are no large emboli seen in the proximal arteries. Doppler of the leg was done, reviewed by me. Admitted as outpatient. Seen by Dr. Whitman, mems engineer and Dr. Beltrán, plant sciences professor. Restarted home medications. Lasix given IV twice a day. Gastrointestinal and deep vein thrombosis prophylaxis. Repeat labs. WIN stockings. We will follow up. Rosalina Vila MD LILA
[2018-03-10] MEDS ORDERED: Enoxaparin 40 mg Syringe SC SCH (10:00)
[2018-03-10] MEDS ORDERED: Magnesium Sulfate 1 gm in D5W 1 GM/100 ML BAG IVPB ONE (10:05)
--- NOTE | 2018-03-10 10:09 | CP.PCM.PN ---
Subjective - Date & Time of Evaluation Date of Evaluation: 03/10/18 Time of Evaluation: 09:45 - Subjective Subjective: Royce Ortiz- Internal Medicine Resident House Doctor Note Subjective: CC: Gait Instability/head trauma HPI: Paged by RN for evaluation of patient s/p trauma to head. Patient seen and examined at bedside. Patient states she was attempting to stand from toilet when became dizzy and leaned into the wall for support. During the initial impact patient states she hit her head. Admits to baseline gait dysfunction. Admits to dizziness. Denies loss of consciousness and trauma to other regions of the body. Further denies fever, chills, chest palpitations, chest pain, shortness of breath, abdominal pain, nausea, vomiting, and pain. Physical Examination: Head: Normocephalic, Tender to palpation in left temporal region Eyes: EOMI, Perrla, Nonicteric, red conjunctiva Heart: + S1, +S2, RRR Lungs: Decreased Breath Sounds bilateral lower lobes, NORMAL BREATHING PATTERN Abdomen: soft, non tender to palpation Extremities: bilateral lower extremity edema Back: no step off sign, no midline tenderness, no paraspinal tenderness, no CVA tenderness bilaterally Neuro: patient is awake, alert, orientated x [address], responds to verbal stimuli, answers questions appropriately, follows commands, CN II- XII intact, muscle strength 5/5 RUE, LUE and 4/5 RLE and LLE, sensation to light touch intact throughout extremities Skin: warm and dry Assessment and Plan: A 52 year old female with a past medical history of hypertension,GERD, arthritis , COPD, sleep apnea,rheumatoid arthritis,right partial nephrectomy, hyperlipidemia,non obstructive coronary artery disease, bilateral knee replacement who was admitted for evaluation and treatment of lower leg swelling and shortness of breath. Patient Head Trauma, Dizziness - Noncontrast CT of head stat as patient is on anticoagulation - high risk fall precautions - neurochecks q4 - bedside commode - othrostatic vital signs - hold lovenox until bleed is ruled out Objective - Vital Signs/Intake and Output Vital Signs (last 24 hours): Temp Pulse Resp BP Pulse Ox 98.3 F 82 20 109/58 L 96 03/10/18 06:00 03/10/18 06:00 03/10/18 06:00 03/10/18 06:00 03/10/18 06:00 Intake and Output: 03/10/18 03/10/18 06:59 18:59 Intake Total 720 Output Total 1300 Balance -580 - Medications Medications: Current Medications Acetaminophen (Tylenol 325mg Tab) 650 mg PO Q4H PRN PRN Reason: Pain, moderate (4-7) Albuterol/Ipratropium (Duoneb 3 Mg/0.5 Mg (3 Ml) Ud) 3 ml INH TID [facility] Last Admin: 03/10/18 07:35 Dose: 3 ml Atorvastatin Calcium (Lipitor) 20 mg PO DIN [facility] Last Admin: 03/09/18 17:37 Dose: 20 mg Benzonatate (Tessalon Perles) 100 mg PO QPM [facility] Last Admin: 03/09/18 17:37 Dose: 100 mg Enoxaparin Sodium (Lovenox) 40 mg SC DAILY [facility] PRN Reason: Protocol Fluticasone Propionate (Flonase) 2 actuation NS DAILY [facility] Last Admin: 03/09/18 09:29 Dose: Not Given Furosemide (Lasix) 40 mg IVP Q12 [facility] Last Admin: 03/09/18 21:14 Dose: 40 mg Gabapentin (Neurontin) 300 mg PO HS [facility] PRN Reason: Protocol Last Admin: 03/09/18 21:16 Dose: 300 mg Gemfibrozil (Lopid) 600 mg PO BID [facility] Last Admin: 03/09/18 17:37 Dose: 600 mg Lactulose (Enulose) 10 gm PO DAILY [facility] Last Admin: 03/09/18 09:27 Dose: 10 gm Lisinopril (Zestril) 20 mg PO DAILY [facility] Last Admin: 03/09/18 09:28 Dose: 20 mg Metoprolol Tartrate (Lopressor) 25 mg PO DAILY [facility] Last Admin: 03/09/18 09:28 Dose: 25 mg Montelukast Sodium (Singulair) 10 mg PO DAILY [facility] Last Admin: 03/09/18 09:28 Dose: 10 mg Mycophenolate Mofetil (Cellcept Cap) 500 mg PO BID [facility] Last Admin: 03/09/18 17:37 Dose: 500 mg Sucralfate (Carafate Tab) 1 gm PO BID [facility] Last Admin: 03/09/18 17:35 Dose: 1 gm Tiotropium [place] (Spiriva) 18 mcg IH DAILY [facility] Last Admin: 03/09/18 09:28 Dose: 18 mcg - Labs Labs: 03/10/18 06:00 03/10/18 06:00 PT 11.4 SECONDS (9.4-12.5) 03/08/18 21:58 INR 1.00 03/08/18 21:58 APTT 30.1 Seconds (25.1-36.5) 03/08/18 21:58
[2018-03-10] MEDS ORDERED: Magnesium Oxide 400 mg Tab UD PO STA (10:20)
--- NOTE | 2018-03-10 11:46 | CT ---
Date of service: 03/10/2018 PROCEDURE: CT HEAD WITHOUT CONTRAST. HISTORY: head trauma COMPARISON: None available. TECHNIQUE: Axial computed tomography images were obtained through the head/brain without intravenous contrast. Radiation dose: Total exam DLP = 1052.25 mGy-cm. This CT exam was performed using one or more of the following dose reduction techniques: Automated exposure control, adjustment of the mA and/or kV according to patient size, and/or use of iterative reconstruction technique. FINDINGS: HEMORRHAGE: No intracranial hemorrhage. BRAIN: Diffuse atrophy with prominence of the ventricles and sulci noted. No mass effect or edema. Intracranial atherosclerosis. Scattered periventricular and subcortical white matter hypodensities, which are nonspecific, but often seen with chronic microvascular ischemic disease. Please note that MRI with diffusion imaging is more sensitive in the detection of acute ischemic event. VENTRICLES: No hydrocephalus. CALVARIUM: Unremarkable. PARANASAL SINUSES: Mucosal polyp/ cyst, right maxillary sinus. Remainder the visualized paranasal sinuses appear clear. . MASTOID AIR CELLS: Unremarkable as visualized. No inflammatory changes. OTHER FINDINGS: None. IMPRESSION: Generalized atrophy. Nonspecific white matter changes.
[2018-03-10] MEDS: Tiotropium 18 mcg Cap For Inhalation IH SCH (13:16)
[2018-03-10] MEDS: Magnesium Oxide 400 mg Tab UD PO SCH (17:28)
--- NOTE | 2018-03-10 17:47 | CARD ---
APPROVED REPORT Date of service: 03/09/2018 EXAM: Two-dimensional and M-mode echocardiogram with Doppler and color Doppler. INDICATION Dyspnea LVFX, R/O CHF,PULMONARY HTN 2D DIMENSIONS Left Atrium (2D)4.0 (1.6-4.0cm)IVSd1.0 (0.7-1.1cm) LVDd4.6 (3.9-5.9cm)PWd1.1 (0.7-1.1cm) LVDs3.2 (2.5-4.0cm)FS (%) 31.0 % LVEF (%)58.7 (>50%) M-Mode DIMENSIONS Aortic Root2.90 (2.2-3.7cm)Aortic Cusp Exc.1.70 (1.5-2.0cm) Aortic Valve AoV Peak Lrzxwbyd320.0cm/Nancy Peak GR.11mmHg Mitral Valve MV E Tlmohmfv331.0cm/sMV A Ayhisour44.4cm/sE/A ratio1.4 TDI Lateral E' Peak V11.10cm/sMedial E' Peak V6.53cm/sE/Lateral E'9.6 E/Medial E'16.4 Pulmonary Valve PV Peak Fdqwondm23.0cm/sPV Peak Grad.2mmHg Tricuspid Valve TR Peak Hwcpvsmq044hw/sRAP TXBRJVRW95kmLfFR Peak Gr.22mmHg [id number] LEFT VENTRICLE The left ventricle is normal size. There is normal left ventricular wall thickness. The left ventricular function is normal.EF-55-60% There is normal LV segmental wall motion. The left ventricular diastolic function is normal. No left ventricle thrombus noted on this study. There is no ventricular septal defect visualized. There is no left ventricular aneurysm. There is no mass noted in the left ventricle. RIGHT VENTRICLE The right ventricle is normal size. There is normal right ventricular wall thickness. The right ventricular systolic function is normal. ATRIA The left atrium is borderline dilated. The right atrium size is normal. The interatrial septum is intact with no evidence for an atrial septal defect. AORTIC VALVE The aortic valve is thickened but opens well. There is mild aortic regurgitation. There is no aortic valvular stenosis. There is no aortic valvular vegetation. MITRAL VALVE The mitral valve is thickened but opens well. Mitral regurgitation is mild. There is no mitral valve stenosis. There is no evidence of mitral valve prolapse. TRICUSPID VALVE The tricuspid valve leaflets are thickened , but open well. There is mild tricuspid regurgitation.RVSP-32 mmof Hg There is no tricuspid valve stenosis. There is no tricuspid valve prolapse or vegetation. PULMONIC VALVE The pulmonary valve is normal in structure. There is trace pulmonic valvular regurgitation. There is no pulmonic valvular stenosis. GREAT VESSELS The aortic root is normal in size. The ascending aorta is normal in size. The pulmonary artery is normal. The IVC is normal in size and collapses >50% with inspiration. PERICARDIAL EFFUSION There is no pleural effusion. There is no pericardial effusion. <Conclusion> The left ventricle is normal size. The left ventricular function is normal.EF-55-60% There is mild aortic regurgitation. Mitral regurgitation is mild. There is mild tricuspid regurgitation.RVSP-32 mmof Hg There is no pericardial effusion. The IVC is normal in size and collapses >50% with inspiration.
--- NOTE | 2018-03-10 18:56 | PN ---
Copied To: Johanna Beltrán MD Attending MD: Johanna Beltrán MD DATE: 03/10/2018 PULMONARY PROGRESS NOTE REFERRING PHYSICIAN: Rosalina Vila MD SUBJECTIVE: She is lying in the bed, head at 45-degrees, night was unremarkable, still has some mild cough. No nausea, no vomiting, no diarrhea. Does have leg swelling. OBJECTIVE: GENERAL: In no acute distress. VITAL SIGNS: Temperature 98, heart rate 80, respiratory rate is 20, blood pressure 175/75, and pulse oximetry 96% on room air. HEENT: Moist mucous membrane. Crowded airway. NECK: Supple. No JVD. LUNGS: A few scattered rhonchi with a prolonged expiratory phase. HEART: S1 and S2. ABDOMEN: Soft, nontender. No organomegaly. EXTREMITIES: There is no edema. NEUROLOGIC: Awake, alert, and follows simple commands. MEDICATIONS: She is on Carafate 1 g twice a day, CellCept 500 mg twice a day, DuoNeb every 8 hours, lactulose 10 g p.o. daily, Flonase 2 sprays to each nostril daily, Lasix 40 mg twice a day, Lipitor 20 mg daily, Lopid 600 mg twice a day, metoprolol tartrate 25 mg daily, Lovenox 40 mg daily, magnesium oxide 400 mg twice a day, Neurontin 300 mg at bedtime, Singulair 10 mg daily, Spiriva 18 mg daily, Tessalon Perles 100 mg daily, Tylenol p.r.n. basis, Zestril 20 mg daily. LABORATORY DATA: Shows hemoglobin 12.3, hematocrit 37.8, WBC 7.2, and platelets 207. Sodium 144, potassium 3.8, chloride 104, bicarbonate is 27. BUN 12, creatinine 0.7. Hemoglobin A1c 5.3, phosphorous is 4.9, magnesium 1.6, iron is 66, albumin is 4.2, vitamin B12 of 217. TSH is 1.29. CAT scan of the head done today, which shows generalized atrophy. No specific white matter changes, otherwise unremarkable. IMPRESSION AND PLAN: Chronic obstructive lung disease, history of deep venous thrombosis and pulmonary embolism in the remote past, hypertension, obesity, sleep apnea syndrome, left knee surgery. Has been having persistent edema of both legs, left more than the right. Has a positive D-dimer. Lower extremity venous Doppler was suboptimal study. Also, CTA was suboptimal study. Attempted to get a V/Q scan. Patient has been having cough, has claustrophobia, could not use inhaler, nuclear material. Spoke to nursing staff, after I spoke to medical doctor nuclear medicine. We will give patient Lyrica 25 mg, also Tessalon Perles before going to the test, and nebulizer treatment. May use nuclear material inhale by a mouth held device instead of full face mask. Encourage CPAP use, gastric prophylaxis, DVT prophylaxis. Thank you and we will follow with you. Johanna Beltrán MD
--- NOTE | 2018-03-10 19:47 | CON ---
Copied To: Ej Ohara MD Attending MD: Ej Ohara MD DATE: 03/10/2018 HISTORY OF PRESENT ILLNESS: A 52-year-old female with past medical history of hypertension, arthritis and came with the complaint of swelling of both the legs and shortness of breath. PAST MEDICAL HISTORY: Hypertension, hyperlipidemia, COPD, sleep apnea. DIAGNOSTIC DATA: CAT scan of the head was done, which shows atrophy. PHYSICAL EXAMINATION: HEENT: Normocephalic, atraumatic. NECK: Supple. NEUROLOGIC: Awake, oriented to self. No aphasia. Cranial nerves II through XII were tested. Pupils reactive. EOM intact. Spontaneous movement of the extremities noted. Deep tendon reflexes are 1+. Both plantars are downgoing. Sensory appears intact. Cerebellar gait deferred. ASSESSMENT AND PLAN: Patient is on deep vein thrombosis prophylaxis. Continue present management. CAT scan of the head was done, which shows only atrophy. We will follow up. Ej Ohara MD
--- NOTE | 2018-03-11 00:09 | CON ---
Copied To: Ej Ohara MD Attending MD: Ej Ohara MD DATE: 03/10/2018 HISTORY OF PRESENT ILLNESS: This is a 52-year-old female with past medical history of hypertension and arthritis, obesity, COPD, sleep apnea, came to the hospital with lower extremity swelling and shortness of breath, and she also felt dizzy; called to evaluate the patient. CAT scan of the head was done, which was reported negative. SOCIAL HISTORY: Does not smoke, does not drink. PHYSICAL EXAMINATION HEENT: Normocephalic, atraumatic. NECK: Supple. NEUROLOGIC: Awake, oriented to self and place. Cranial nerves II through XII were tested. Pupils reactive. Spontaneous movement of the extremities noted. Deep tendon reflexes are 1+. Both plantars are downgoing. Sensory appears intact. Cerebellar gait deferred. IMPRESSION AND PLAN: A 52-year-old female with past medical history of hypertension, hyperlipidemia, chronic obstructive pulmonary disease and status post cardiac catheterization last year, and the patient has bilateral knee replacement also last year, and felt dizzy and hit her head, CAT scan of the head was negative and workup in progress for bilateral swelling of the legs. The patient is on deep venous thrombosis prophylaxis, and we will follow up. Ej Ohara MD
--- NOTE | 2018-03-11 02:51 | PN ---
Copied To: Rosalina Vila MD Attending MD: Rosalina Vila MD DATE: 03/10/2018 SUBJECTIVE: The patient was seen and examined at the bedside. The patient is looking comfortable. Unremarkable night. Still having some cough. No nausea or vomiting. No diarrhea. Does have swelling of the leg. Earlier episodes reviewed. The patient went for V/Q scan. PHYSICAL EXAMINATION: VITAL SIGNS: Temperature 98, heart rate 80, respiratory rate 20, blood pressure 170/75, pulse oximetry is 96% on room air. HEENT: Head is normocephalic and atraumatic. Eyes, PERRLA. Extraocular muscles are intact. Conjunctivae are clear. Nose is patent. Mucous membranes are moist. NECK: Supple. No carotid bruit, JVD or thyromegaly. CHEST: Bilaterally symmetrical. HEART: S1 and S2 positive. LUNGS: Have a few scattered rhonchi with prolonged expiratory phase. ABDOMEN: Soft. No organomegaly. EXTREMITIES: No edema. No cyanosis. NEUROLOGICAL: The patient is awake and alert. Follows simple commands. MEDICATIONS: Carafate, CellCept, DuoNeb, lactulose, Flonase, Lasix, Lipitor, Lopid, metoprolol, Lovenox, magnesium oxide, Neurontin, Singulair, Spiriva, Tessalon Perles, Tylenol and Zestril. LABORATORY DATA: Hemoglobin 12.3, hematocrit 37.8, white blood cells 7.2, platelet 207. Sodium 144, potassium 3.8, BUN 12, creatinine 0.7, hemoglobin A1c 5.3. B12 is 217. ASSESSMENT AND PLAN: Ms. Cindy Shepard is a 52-year-old lady with hypertension, chronic obstructive lung disease, history of deep vein thrombosis, and pulmonary embolism in the remote past, obesity, sleep apnea syndrome, left knee surgery, came with swelling of the legs, left more than the right, has positive D-dimer, lower extremity venous Doppler was suboptimal study. Also, CTA was suboptimal study. The patient went for V/Q scan, results are pending. The patient has been claustrophobic. The patient will get Lyrica, Tessalon Perles. Neurology consult called for dizziness. Appreciated Dr. Beltrán's input. Encourage continuous positive airway pressure use. Gastric prophylaxis. Deep venous thrombosis prophylaxis. Repeat labs. We will follow. Rosalina Vila MD
--- NOTE | 2018-03-11 07:06 | CP.PCM.PN ---
Subjective - Date & Time of Evaluation Date of Evaluation: 03/11/18 Time of Evaluation: 06:45 - Subjective Subjective: no distress, awake, denies shortness of breath Reason for consultation and follow up:Cardiac evaluation of shortness of breath , history of asthma,COPD, Obstructive sleep apnea, GERD, presented to ER for ankle swelling Seen and examined by me and Dr. Whitman Objective - Vital Signs/Intake and Output Vital Signs (last 24 hours): Temp Pulse Resp BP Pulse Ox 97.4 F L 78 18 117/20 L 97 03/10/18 17:52 03/10/18 17:52 03/10/18 17:52 03/10/18 17:52 03/10/18 17:52 Intake and Output: 03/11/18 03/11/18 06:59 18:59 Intake Total 1080 Balance 1080 - Medications Medications: Current Medications Acetaminophen (Tylenol 325mg Tab) 650 mg PO Q4H PRN PRN Reason: Pain, moderate (4-7) Albuterol/Ipratropium (Duoneb 3 Mg/0.5 Mg (3 Ml) Ud) 3 ml INH TID [facility] Last Admin: 03/10/18 20:10 Dose: 3 ml Atorvastatin Calcium (Lipitor) 20 mg PO DIN [facility] Last Admin: 03/10/18 17:28 Dose: 20 mg Benzonatate (Tessalon Perles) 100 mg PO QPM [facility] Last Admin: 03/10/18 17:28 Dose: 100 mg Cyanocobalamin (Vitamin B12 1000 Mcg/Ml Inj) 1,000 mcg IM DAILY [facility] Enoxaparin Sodium (Lovenox) 40 mg SC DAILY [facility] PRN Reason: Protocol Fluticasone Propionate (Flonase) 2 actuation NS DAILY [facility] Last Admin: 03/09/18 09:29 Dose: Not Given Furosemide (Lasix) 40 mg IVP Q12 [facility] Last Admin: 03/10/18 21:11 Dose: Not Given Gabapentin (Neurontin) 300 mg PO HS [facility] PRN Reason: Protocol Last Admin: 03/10/18 21:11 Dose: 300 mg Gemfibrozil (Lopid) 600 mg PO BID [facility] Last Admin: 03/10/18 17:28 Dose: 600 mg Lactulose (Enulose) 10 gm PO DAILY [facility] Last Admin: 03/10/18 13:15 Dose: 10 gm Lisinopril (Zestril) 20 mg PO DAILY [facility] Last Admin: 03/10/18 13:29 Dose: 20 mg Magnesium Oxide (Mag-Ox) 400 mg PO BID [facility] Stop: 03/11/18 23:59 Last Admin: 03/10/18 17:28 Dose: 400 mg Metoprolol Tartrate (Lopressor) 25 mg PO DAILY [facility] Last Admin: 03/10/18 13:16 Dose: 25 mg Montelukast Sodium (Singulair) 10 mg PO DAILY [facility] Last Admin: 03/10/18 13:16 Dose: 10 mg Mycophenolate Mofetil (Cellcept Cap) 500 mg PO BID [facility] Last Admin: 03/10/18 17:27 Dose: 500 mg Sucralfate (Carafate Tab) 1 gm PO BID [facility] Last Admin: 03/10/18 17:27 Dose: 1 gm Tiotropium Ward (Spiriva) 18 mcg IH DAILY [facility] Last Admin: 03/10/18 13:16 Dose: 18 mcg - Labs Labs: 03/10/18 06:00 03/10/18 06:00 PT 11.4 SECONDS (9.4-12.5) 03/08/18 21:58 INR 1.00 03/08/18 21:58 APTT 30.1 Seconds (25.1-36.5) 03/08/18 21:58 - Constitutional Appears: No Acute Distress - Eye Exam Eye Exam: Normal appearance - ENT Exam ENT Exam: Mucous Membranes Moist - Respiratory Exam Respiratory Exam: Decreased Breath Sounds, NORMAL BREATHING PATTERN - Cardiovascular Exam Cardiovascular Exam: +S1, +S2 - GI/Abdominal Exam GI & Abdominal Exam: Soft, Normal Bowel Sounds - Neurological Exam Neurological Exam: Alert, Awake, Oriented x3 - Psychiatric Exam Psychiatric exam: Normal Affect - Skin Skin Exam: Dry, Warm Assessment and Plan - Assessment and Plan (Free Text) Assessment: A 52 year old female who came in to the ER due to lower leg swelling and shortness of breath at night,history of hypertension,GERD, arthritis, COPD, sleep apnea,rheumatoid arthritis,right partial nephrectomy, hyperlipidemia,non obstructive coronary artery disease. post bilateral knee replacement.Elevated D- dimer, rule out pulmonary embolism,Foot and ankle X ray- normal negative for fracture,US of lower extremities negative for DVT,,CT of chest suboptimal pacification of the pulmonary arteries, there are no large emboli seen in the proximal arteries.For VQ scan. Plan: ECHO done-Normal LV function, LVEF 55-60% Mild AR/MR/TR For VQ scan Had a fall yesterday, claimed to become dizzy Head CT negative for bleeding Neuro on consult Orthostatic vital signs Fall precaution On Lasix 40 mg every 12 hours,Lisinopril 20 mg daily,Lopressor 25 mg daily Continue current treatment Continue current medications Will follow up Plan and treatment discussed with Dr. Whitman
[2018-03-11 07:14] LABS: BLOOD UREA NITROGEN 21 mg/dL (7-21); CALCIUM 8.7 mg/dL (8.4-10.5); GFR NON-AFRICAN AMERICAN 58
[2018-03-11] MEDS: Albuterol-Ipratrop 3 mg / 0.5 (3 ml) UD INH SCH ×4 (08:00→19:41)
[2018-03-11] MEDS: Tiotropium 18 mcg Cap For Inhalation IH SCH (09:33)
[2018-03-11] MEDS: Magnesium Oxide 400 mg Tab UD PO SCH ×2 (09:33→18:12)
[2018-03-11] MEDS ORDERED: Potassium Chloride 20 mEq ER Tab PO ONE (11:35)
--- NOTE | 2018-03-11 12:28 | NM ---
Date of service: 03/10/2018 COMPARISON: Chest CT with contrast 03/09/2018. TECHNIQUE: 38.2 mCi technetium 99-m DTPA aerosol. 5.2 mCI technetium 99-m MAA administered intravenously. FINDINGS: VENTILATION COMPONENT: Normal. PERFUSION COMPONENT: Normal. IMPRESSION: Lowprobability ventilation perfusion scan for pulmonary embolism.
--- NOTE | 2018-03-11 23:07 | PN ---
Copied To: Johanna Beltrán MD Attending MD: Johanna Beltrán MD DATE: 03/11/2018 PULMONARY PROGRESS NOTE REFERRING PHYSICIAN: Dr. Vila OBJECTIVE : The patient is lying in the bed, head at 45 degrees. Night was unremarkable. Could not use CPAP. No nausea, no vomiting, no diarrhea. Still has trace leg swelling. OBJECTIVE: GENERAL: In no acute distress. VITAL SIGNS: Temperature is 98, heart rate 70, respiratory rate is 20, blood pressure 95/51, pulse ox 98% on 2 liters nasal cannula. HEENT: Moist mucous membrane. Crowded airway. NECK: Supple. No JVD. LUNGS: Have a fair airflow with rhonchi. HEART: S1 and S2. ABDOMEN: Soft, nontender, no organomegaly. EXTREMITIES: Does have trace edema. NEUROLOGIC: Awake, alert, follows simple command. MEDICATIONS: She is on Carafate 1 g twice a day, CellCept 500 mg twice a day, DuoNeb every 8 hours, lactulose 10 g p.o. daily, Flonase one spray to each nostril daily, Lasix 40 mg twice a day, Lipitor , 600 mg twice a day, metoprolol tartrate 25 mg daily, Lovenox 40 mg daily, mag oxide 400 mg twice a day, Neurontin 300 mg at bedtime, Singulair 10 mg daily, Spiriva inhaled daily, Tessalon Perles 100 mg daily, Tylenol p.r.n. basis, vitamin B12 100 mcg IM daily, Zestril 20 mg daily. LABORATORY DATA: Reviewed and noted. Sodium 144, potassium 3.6, chloride 104, bicarbonate 27, BUN 21, creatinine 1, glucose 108, calcium 8.7, magnesium is 2. IMPRESSION AND PLAN: Chronic obstructive lung disease, history of deep venous thrombosis, thrombus and pulmonary embolism in the remote past, hypertension, obesity, sleep apnea syndrome, left knee surgery. Pulmonary point of view, she is doing okay. V/Q scan is low probability. CTA was nondiagnostic. We will continue bronchodilator. Keep head at 45 degrees. Sleep apnea precaution. Encourage CPAP use. Fall precaution. Out of bed to chair. May ambulate. Thank you and we will follow with you. Johanna Beltrán MD [facility] # [id number]
--- NOTE | 2018-03-12 02:23 | PN ---
Copied To: Rosalina Vila MD Attending MD: Rosalina Vila MD DATE: 03/11/2018 SUBJECTIVE: Patient is seen and examined at the bedside. Looking comfortable. Not in distress. Awake. No shortness of breath. No hematuria. No hematochezia. Still has swelling of the legs. No fever. No chills. No headache. No dizziness. PHYSICAL EXAMINATION: VITAL SIGNS: Temperature 97.4, pulse 78, respiratory rate 18, blood pressure 120/80. HEENT: Head normocephalic, atraumatic. Eyes, PERRLA. Extraocular muscles intact. Conjunctivae clear. Nose patent. Mucous membrane moist. NECK: Supple. No carotid bruit. No JVD or thyromegaly. CHEST: Bilaterally symmetrical. HEART: S1 and S2 positive. LUNGS: Clear to auscultation. ABDOMEN: Soft. Bowel sounds positive. No organomegaly. EXTREMITIES: No edema. No cyanosis. NEUROLOGICAL: The patient is awake and alert. Moving all 4 extremities. No focal deficits. MEDICATIONS: Tylenol, DuoNeb, Lipitor, benzoate, vitamin B12, Lovenox, Flonase, Lasix, Neurontin, Lopid, Zestril, Lopressor, Singulair. LABORATORY DATA: White blood cells 7.2, hemoglobin 12.3, hematocrit 37.8, platelets 207. Sodium 144, potassium 3.8, BUN 12, creatinine 0.7, glucose 102. ASSESSMENT AND PLAN: Ms. Cindy Shepard is a 52-year-old female, came with swelling of the legs, shortness of breath, has hypertension, gastroesophageal reflux disease, dyspepsia, arthritis, chronic obstructive pulmonary disease, sleep apnea syndrome, rheumatoid arthritis, right partial nephrectomy, hypercholesterolemia, nonobstructive coronary artery disease, post bilateral knee replacement, elevated D-dimer, rule out pulmonary embolism. Foot and ankle x-ray done shows normal, and no fracture. Ultrasound of the lower extremities negative for deep venous thrombosis. CT of the chest suboptimal for opacification of the pulmonary arteries. There are no large emboli seen in the proximal arteries for V/Q scan. Appreciated Cardiology and Pulmonary input. Discussion done with nurse practitioner. Physical therapy. Gastrointestinal and deep venous thrombosis prophylaxes. Repeat lab. Continue Lasix. We will follow up. Rosalina Vila MD MTDJulia
--- NOTE | 2018-03-12 06:53 | CP.PCM.PN ---
Subjective - Date & Time of Evaluation Date of Evaluation: 03/12/18 Time of Evaluation: 06:15 - Subjective Subjective: Awake, denies shortness of breath,no distress,ambulating to bathroom with assistance Reason for consultation and follow up:Cardiac evaluation of shortness of breath , history of asthma,COPD, Obstructive sleep apnea, GERD, presented to ER for ankle swelling Seen and examined by me and Dr. Whitman Objective - Vital Signs/Intake and Output Vital Signs (last 24 hours): Temp Pulse Resp BP Pulse Ox 98 F 82 20 117/52 L 96 03/11/18 17:33 03/11/18 17:33 03/11/18 17:33 03/11/18 17:33 03/11/18 17:33 Intake and Output: 03/11/18 03/12/18 18:59 06:59 Intake Total 1640 Output Total 5 Balance 1635 - Medications Medications: Current Medications Acetaminophen (Tylenol 325mg Tab) 650 mg PO Q4H PRN PRN Reason: Pain, moderate (4-7) Last Admin: 03/11/18 09:34 Dose: 650 mg Albuterol/Ipratropium (Duoneb 3 Mg/0.5 Mg (3 Ml) Ud) 3 ml INH TID [facility] Last Admin: 03/11/18 19:41 Dose: 3 ml Atorvastatin Calcium (Lipitor) 20 mg PO DIN [facility] Last Admin: 03/11/18 18:11 Dose: 20 mg Benzonatate (Tessalon Perles) 100 mg PO QPM [facility] Last Admin: 03/11/18 18:11 Dose: 100 mg Cyanocobalamin (Vitamin B12 1000 Mcg/Ml Inj) 1,000 mcg IM DAILY [facility] Last Admin: 03/11/18 09:34 Dose: 1,000 mcg Enoxaparin Sodium (Lovenox) 40 mg SC DAILY [facility] PRN Reason: Protocol Fluticasone Propionate (Flonase) 2 actuation NS DAILY [facility] Last Admin: 03/09/18 09:29 Dose: Not Given Furosemide (Lasix) 40 mg IVP Q12 [facility] Last Admin: 03/10/18 21:11 Dose: Not Given Gabapentin (Neurontin) 300 mg PO HS [facility] PRN Reason: Protocol Last Admin: 03/11/18 21:44 Dose: 300 mg Gemfibrozil (Lopid) 600 mg PO BID [facility] Last Admin: 03/11/18 18:15 Dose: 600 mg Lactulose (Enulose) 10 gm PO DAILY [facility] Last Admin: 03/11/18 09:34 Dose: 10 gm Lisinopril (Zestril) 20 mg PO DAILY [facility] Last Admin: 03/10/18 13:29 Dose: 20 mg Metoprolol Tartrate (Lopressor) 25 mg PO DAILY [facility] Last Admin: 03/10/18 13:16 Dose: 25 mg Montelukast Sodium (Singulair) 10 mg PO DAILY [facility] Last Admin: 03/11/18 09:33 Dose: 10 mg Mycophenolate Mofetil (Cellcept Cap) 500 mg PO BID [facility] Last Admin: 03/11/18 18:11 Dose: 500 mg Sucralfate (Carafate Tab) 1 gm PO BID [facility] Last Admin: 03/11/18 18:12 Dose: 1 gm Tiotropium [place] (Spiriva) 18 mcg IH DAILY [facility] Last Admin: 03/11/18 09:33 Dose: 18 mcg - Labs Labs: 03/11/18 06:00 PT 11.4 SECONDS (9.4-12.5) 03/08/18 21:58 INR 1.00 03/08/18 21:58 APTT 30.1 Seconds (25.1-36.5) 03/08/18 21:58 - Constitutional Appears: No Acute Distress - Head Exam Head Exam: NORMOCEPHALIC - Eye Exam Eye Exam: Normal appearance - ENT Exam ENT Exam: Mucous Membranes Moist - Respiratory Exam Respiratory Exam: Decreased Breath Sounds, Clear to Ausculation Bilateral, NORMAL BREATHING PATTERN - Cardiovascular Exam Cardiovascular Exam: +S1, +S2 - GI/Abdominal Exam GI & Abdominal Exam: Soft, Normal Bowel Sounds - Neurological Exam Neurological Exam: Alert, Awake, Oriented x3 - Psychiatric Exam Psychiatric exam: Normal Affect - Skin Skin Exam: Dry, Warm Assessment and Plan - Assessment and Plan (Free Text) Assessment: A 52 year old female who came in to the ER due to lower leg swelling and shortness of breath at night,history of hypertension,GERD, arthritis, COPD, sleep apnea,rheumatoid arthritis,right partial nephrectomy, hyperlipidemia,non obstructive coronary artery disease. post bilateral knee replacement.Elevated D- dimer, rule out pulmonary embolism,Foot and ankle X ray- normal negative for fracture,US of lower extremities negative for DVT,,CT of chest suboptimal pacification of the pulmonary arteries, there are no large emboli seen in the proximal arteries.VQ scan done negative for PE.ECHO done-Normal LV function, LVEF 55-60%, Mild AR/MR/TR,had episode of fall, Head CT negative for bleeding, Orthostatic vital signs. Fall preacuation. Plan: Feels better,ambulating to bathroom Denies dizziness Heart rate and blood pressure stable Cardiac status stable Fall precaution On Lasix 40 mg every 12 hours,Lisinopril 20 mg daily,Lopressor 25 mg daily Continue current treatment Continue current medications Discharge Planning Will follow up Plan and treatment discussed with Dr. Whitman
[2018-03-12] MEDS: Albuterol-Ipratrop 3 mg / 0.5 (3 ml) UD INH SCH ×4 (07:58→20:17)
[2018-03-12 08:52] VITALS: O2SAT 98
[2018-03-12] MEDS: Tiotropium 18 mcg Cap For Inhalation IH SCH (10:13)
[2018-03-12] MEDS: Fluticasone Nasal 50 mcg/Spray NS SCH (10:51)
--- NOTE | 2018-03-12 22:52 | PN ---
Copied To: Rosalina Vila MD Attending MD: Rosalina Vila MD DATE: 03/12/2018 SUBJECTIVE: The patient is looking comfortable. Still having increased swelling of the legs. Friend is on the bedside, awake. Denies shortness of breath. No distress. No headache. No dizziness. No chest pain. No palpitation. No fever. No chills. PHYSICAL EXAMINATION: VITAL SIGNS: Temperature 98, pulse 82, respiratory rate 20, blood pressure 117/62, pulse oximetry 96. HEENT: Head normocephalic, atraumatic. Eyes PERRLA. Extraocular muscles intact. Conjunctivae clear. Nose patent. Mucous membrane moist. NECK: Supple. No carotid bruit. No JVD or thyromegaly. CHEST: Bilaterally symmetrical. HEART: S1 and S2 positive. LUNGS: Clear to auscultation. ABDOMEN: Soft. Bowel sounds positive. No organomegaly. EXTREMITIES: No edema. No cyanosis. NEUROLOGICAL: The patient is awake and alert. Moving all 4 extremities. No focal deficits. MEDICATIONS: Tylenol, DuoNeb, Lipitor, Tessalon Perles, cyanocobalamin, Lovenox, Flonase, Lasix, Neurontin, Lopid, Tylenol, Zestril, Lopressor, Singulair, Cellcept, Carafate, Spiriva. LABORATORY DATA: Sodium 144, potassium 3.6, BUN 21, creatinine 1, glucose 108. ASSESSMENT AND PLAN: Ms. Cindy Shepard, 52-year-old female with history of hypertension, gastroesophageal reflux disease, dyspepsia, arthritis, chronic obstructive pulmonary disease, asthma, sleep apnea syndrome, rheumatoid arthritis, had partial nephrectomy, hypercholesterolemia, nonobstructive coronary artery disease, bilateral knee replacement, elevated D-dimer, foot and ankle pain, swelling of the leg. Doppler negative for deep venous thrombosis. Degenerative joint disease. Echocardiogram shows left ventricular ejection fraction of 55-60%. CAT scan of the head is negative. Orthostatic vital signs stable. Fall precautions. The patient is deconditioned, feels better, ambulating to bathroom. Denies dizziness. Heart rate and blood pressure stable. Cardiac status stable. Fall precautions. Continue Lasix, current treatment. Plan is to take the patient to Transitional Care Unit for further treatment. We will follow up. Rosalina Vila MD [facility] # [id number]
[2018-03-13 08:06] VITALS: BP 120/68; PULSE 74; RESP 20; TEMP 98.7
[2018-03-13] MEDS: Albuterol-Ipratrop 3 mg / 0.5 (3 ml) UD INH SCH (08:59)
[2018-03-13] MEDS: Fluticasone Nasal 50 mcg/Spray NS SCH (09:17)
[2018-03-13] MEDS: Tiotropium 18 mcg Cap For Inhalation IH SCH (09:17)
== END 2018-03-13 12:51 | DRG 556 ==
LOC: ED 16:25 → ERH 20:49 → 3RSO 03-09 01:43 → OBSVTOIN 03-10 10:04 → 3RSO 03-10 19:56
PROVIDERS: ADMIT Internal Medicine; ATTEND Internal Medicine
DX: M79.89 Other specified soft tissue disorders (principal); Z68.41 Body mass index [BMI] 40.0-44.9, adult; E66.9 Obesity, unspecified; E78.00 Pure hypercholesterolemia, unspecified; E78.5 Hyperlipidemia, unspecified; G47.33 Obstructive sleep apnea (adult) (pediatric); I50.9 Heart failure, unspecified; I11.0 Hypertensive heart disease with heart failure; I25.10 Atherosclerotic heart disease of native coronary artery without angina pectoris; J44.9 Chronic obstructive pulmonary disease, unspecified; K21.9 Gastro-esophageal reflux disease without esophagitis; M06.9 Rheumatoid arthritis, unspecified; R79.1 Abnormal coagulation profile; I07.1 Rheumatic tricuspid insufficiency; Z79.01 Long term (current) use of anticoagulants; Z86.711 Personal history of pulmonary embolism; Z86.718 Personal history of other venous thrombosis and embolism; Z90.5 Acquired absence of kidney; Z96.653 Presence of artificial knee joint, bilateral; Z91.19 Patient's noncompliance with other medical treatment and regimen; M19.90 Unspecified osteoarthritis, unspecified site

== ENCOUNTER 2018-11-26 12:04 | Outpatient (CLI) | payer MEDICARE, MEDICAID | END 2018-11-26 12:05 | disposition home or self-care (01) | LOC: RAD 12:04 ==

== ENCOUNTER 2018-12-01 11:23 | Outpatient (CLI) | payer MEDICARE, MEDICAID | END 2018-12-01 11:24 | disposition home or self-care (01) | LOC: RAD 11:23 ==